=== PATIENT | female | born 1995 | race Two or more races ===

== ENCOUNTER 2016-04-19 20:26 | Emergency (ER) | payer SELFPAY ==
[~2016-04-19] VITALS: Ht 152.4 cm; Wt 59.0 kg
[2016-04-19 20:41] VITALS: BP 142/87
[2016-04-19] MEDS ORDERED: TETRACAINE 0.5% OS ONE (20:45)
[2016-04-19] MEDS ORDERED: FLUORESCEIN OPHTH TEST STRIP. OS ONE (20:45)
[2016-04-19] MEDS ORDERED: TOBR5DRO6 OD (21:31)
--- NOTE | 2016-04-19 21:31 | PHYS DOC ---
Past Medical History Past Medical History: No Pertinent History Past Surgical History: No Surgical History Alcohol Use: None Drug Use: None Adult General Chief Complaint Chief Complaint: EYE PROBLEMS HPI HPI Patient is a 20 year old female who presents with right eye redness and irritation that began today. Patient denies any vision loss. Review of Systems Review of Systems Constitutional: Denies fever or chills [] Eyes: Right eye redness and irritation HENT: Denies nasal congestion or sore throat [] Integument: Denies rash or skin lesions [] Neurologic: Denies headache, focal weakness or sensory changes [] Endocrine: Denies polyuria or polydipsia [] Current Medications Current Medications Current Medications Medications (Trade) Dose Ordered Sig/Lesly Start Time Stop Time Status Last Admin Dose Admin Fluorescein Sodium (Ful-Malgorzata) 1 strip 1X ONCE 04/19/16 20:45 04/19/16 20:51 DC 04/19/16 20:50 1 STRIP Tetracaine HCl (Tetracaine) 1 drop 1X ONCE 04/19/16 20:45 04/19/16 20:51 DC 04/19/16 20:50 1 DROP Allergies Allergies Allergies Coded Allergies Type Severity Reaction Last Updated Verified No Known Drug Allergies 06/11/15 No Physical Exam Physical Exam Constitutional: Well developed, well nourished, no acute distress, non-toxic appearance. [] HENT: Normocephalic, atraumatic, bilateral external ears normal, oropharynx moist, no oral exudates, nose normal. [] Eyes: PERRLA, EOMI, right conjunctiva is mildly injected. The eye was looked under Wood's lamp, there is no corneal abrasion. Skin: Warm, dry, no erythema, no rash. [] Back: No tenderness, no CVA tenderness. [] Extremities: No tenderness, no cyanosis, no clubbing, ROM intact, no edema. [] Neurologic: Alert and oriented X 3, normal motor function, normal sensory function, no focal deficits noted. [] Psychologic: Affect normal, judgement normal, mood normal. [] Current Patient Data Vital Signs Vital Signs Date Time Temp Pulse Resp B/P Pulse Ox O2 Delivery O2 Flow Rate FiO2 04/19/16 20:41 97.6 103 18 97 Room Air 97.6 EKG EKG [] Radiology/Procedures Radiology/Procedures [] Course & Med Decision Making Course & Med Decision Making Pertinent Labs and Imaging studies reviewed. (See chart for details) Patient has bacterial conjunctivitis to the right eye. Discharged with tobramycin. Importance of good hand hygiene emphasis. 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 Instructed to return to the ED if symptoms worsen. Dragon Disclaimer Dragon Disclaimer This electronic medical record was generated, in whole or in part, using a voice recognition dictation system. Departure Departure Impression: Primary Impression: Acute bacterial conjunctivitis of right eye Disposition: HOME, SELF-CARE Condition: STABLE Referrals: NO PCP (PCP) Tamia DING MD Follow-up with your doctor or the eye doctor in one week Patient Instructions: Bacterial Conjunctivitis, [id number] Additional Instructions: You were seen for bacterial conjunctivitis which is pinkeye to the right eye. Use the prescribed antibiotic eyedrops as ordered. Keep your hands clean. You may to change your makeup after the treatment. Do not wear contact lenses during the treatment. Come back to the ED if symptoms worsen. Scripts Tobramycin 5 Ml Drops1 Drop OD Q4HRS #5 ML use for 5-7 days to the affected eye Prov:JULIAN WALTON APRN 04/19/16 JULIAN WALTON APRN Apr 19, 2016 21:32
== END 2016-04-19 21:35 | disposition home or self-care (01) ==
LOC: ER 20:26
DX: H10.31 Unspecified acute conjunctivitis, right eye (principal)
CPT/HCPCS: 99283